=== PATIENT | male | born 1945 | race Caucasian/White ===

== ENCOUNTER → 2017-12-28 08:44 | Outpatient (CLI) | payer MEDICARE, OTHER, SELFPAY ==
--- NOTE | 2017-12-31 09:22 | P.PCN_ITS ---
Cardiac Stress Test Report Referral & Results Date Patient Seen: 12/31/17 Requesting provider: Naye Aguilera Indication: Dyspnea Rest ECG: Unremarkable Procedure Note: Today following both written and verbal informed consent the patient was exercised according to a standard Porfirio protocol patient went for a total of 6 min 1 sec achieving a maximum heart rate of 138 maximum systolic blood pressure of 200. This is approximately 7.0 METS. Exercise was terminated at this point because of targets were met and patient unable to continue at faster speed. Patient was also given Cardiolite through a previously started Hep-Lock IV by the nuclear physics teacher approximately 1 minute prior to the cessation of exercise. No ST segment changes Occasional to frequent PVCs and rare PACs Impression: No ECG evidence of ischemia Perfusion imaging will be reported separately based on Cardiolite administration Dysrhythmia as above Please note: Actual ECG tracings can be found in the PACS system.
--- NOTE | 2017-12-31 12:42 | DI.NM.S_ITS ---
PATIENT NAME: MARCOS TIM : 1945 EXAM DATE: 12/31/2017 8:52 ORD. : DAVID LAMAR M.D. CC: MODALITY: NM PATIENT TYPE: Out CONTRAST MEDIA: STATION ID: [id number] FLUORO TIME: PROCEDURE: NM MONICA PERF SPECT REST & STR Rest and exercise myocardial perfusion SPECT with gated imaging and ejection fraction RADIOPHARMACEUTICAL: 22.8 mCi Tc-99m sestamibi IV at rest and 14.8 mCi Tc- 99m sestamibi IV at peak exercise. A [id number]-[id number] was performed. INDICATIONS: SHORTNESS OF BREATH TECHNIQUE: Radiopharmaceutical was injected at peak stress test, and also at rest. SPECT images were obtained. SPECT myocardial perfusion images were displayed in short axis, horizontal long axis, and vertical long axis views. Gated images were reviewed using Mentegram software. COMPARISON: None. CARDIAC STRESS: A standard Porfirio treadmill exercise tolerance test was performed by the patient under the supervision of an attending staff. The patient exercised for 6 minutes; functional aerobic impairment (MJ) is 0%. Hemodynamic data: There is normal blood pressure and heart rate response to exercise stress. Patient achieved 93% of maximum predicted heart rate at peak exercise. Symptoms: Patient denied chest pain during exercise. EKG: No diagnostic EKG changes of ischemia; There were frequent PVCs during exercise. FINDINGS: Raw data: There is good myocardial labeling by radiotracer. No significant motion artifacts. Sxga-fd-lqktd ratio is 0.3 (normal is less than 0.38 for sestamibi tracer, and less than 0.50 for thallium tracer). Left ventricle function: Gated images demonstrate normal left ventricle wall thickening. No segmental wall motion abnormality. No transient visual ischemic Continued Report - Page 2 of 2 PATIENT NAME: MARCOS TIM : 1945 EXAM DATE: 12/31/2017 8:52 ORD. : DVAID LAMAR M.D. CC: MODALITY: NM PATIENT TYPE: Out CONTRAST MEDIA: STATION ID: [id number] FLUORO TIME: dilation; The left ventricle resting end-diastolic volume is 92 mL. Left ventricle stress ejection fraction is 74%; normal values are above 45%. Myocardial perfusion: There is a small inferoapical defect which is similar during stress and rest and indicates either prior small infarct or apical thinning. Otherwise there is great uptake of radiotracer without any reversible or fixed defects. IMPRESSION: No evidence of ischemia. Very small, fixed inferoapical defect. Average exercise capacity. Dictated by: Zach Moss on 12/31/2017 at 12:31 Approved by: Zach Moss on 12/31/2017 at 12:42
== END ==
PROVIDERS: PCP Family Medicine; Visit Provider Internal Medicine Cardiovascular Disease
DX: I49.3 Ventricular premature depolarization (principal); I49.1 Atrial premature depolarization; R06.02 Shortness of breath; R06.00 Dyspnea, unspecified
CPT/HCPCS: 78452; 93016; 93017; 93018; A9502

== ENCOUNTER → 2025-01-26 12:31 | Outpatient (CLI) | payer MEDICARE, OTHER, SELFPAY ==
--- NOTE | 2025-01-26 12:36 | DI.ECHO.S_ITS ---
[facility] : : [id number] : [place] : : [id number] : : Phone: [phone] Echocardiogram Report + + :Name: MARCOS TIM Study Date: 01/26/2025 Height: 68 in : :[facility] ReadingLocation: Weight: 193 lb : : Gender: Male BSA: 2.0 m2 : :: 1945 Age: 80 yrs BP: 181/76 mmHg: :Reason For Study: S/P TAVR : :Ordering Physician: WILLARD, : :DAVID Performed By: Nick Gorman : :Referring: DAVID LAMAR : + + Interpretation Summary The left ventricle is normal in size. The left ventricular ejection fraction is normal. The ejection fraction is estimated to be 60-65%. The right ventricle is grossly normal size. The right ventricular systolic function is normal. 26mm Medtronic Evolut FX valve visualized There is a bioprosthetic aortic valve. The prosthetic aortic valve is well-seated. The peak aortic velocity is 2.22 m/sec. The aortic valve mean gradient is 11.5 mmHg. The peak aortic velocity on the previous exam was 2.4 m/sec. There is mild perivalvular regurgitation around the prosthetic aortic valve. New AI. Fatty tricuspid annulus and very prominent eustachian valve in the right atrium which is visualized in apical views. Seen on previous echocardiogram in December 2023 as well. There is mild tricuspid regurgitation. Right ventricular systolic pressure is estimated to be 29.3 mmHg plus the clinically estimated CVP which cannot be estimated on this exam. Procedure: A two-dimensional transthoracic echocardiogram with color flow and Doppler was performed. The study quality was technically good. Comparison is made with the echocardiogram of 01/12/2024. The patient was in normal sinus rhythm during the exam. Left Ventricle: The left ventricle is normal in size. Left ventricular wall thickness is mild-moderately increased. There is no ventricular septal defect visualized. The ejection fraction is estimated to be 60-65%. The left ventricular ejection fraction is normal. There are no focal wall motion abnormalities. MV E/A: 1.1 Med Peak E' Alverto: 5.2 cm/sec E/E' med: 18.3. Right Ventricle: The right ventricle is grossly normal size. The right ventricular systolic function is normal. Atria: The left atrium is moderately dilated. The left atrium has mildly increased in size since the prior echo exam. The right atrium grossly appears normal in size. The interatrial septum is not well visualized. Mitral Valve: There is mild mitral annular calcification. The mitral valve leaflets are mildly calcified. The mitral valve leaflets appear mildly thickened. There is trace mitral regurgitation. Compared to the prior echo study, there has been a decrease in the severity of mitral regurgitation. Aortic Valve: 26mm Medtronic Evolut FX valve visualized. There is a bioprosthetic aortic valve. The prosthetic aortic valve is well-seated. There is mild perivalvular regurgitation around the prosthetic aortic valve. The peak aortic velocity is 2.22 m/sec. The aortic valve mean gradient is 11.5 mmHg. The peak aortic velocity on the previous exam was 2.4 m/sec. Tricuspid Valve: The tricuspid valve is not well visualized, but is grossly normal. Fatty tricuspid annulus and very prominent eustachian valve in the right atrium which is visualized in apical views. Seen on previous echocardiogram in December 2023 as well. There is mild tricuspid regurgitation. Right ventricular systolic pressure is estimated to be 29.3 mmHg plus the clinically estimated CVP which cannot be estimated on this exam. Pulmonic Valve: The pulmonic valve is not well seen, but is grossly normal. There is trace pulmonic regurgitation. Great Vessels: The aortic root is normal size. The dimensions of the ascending aorta are normal. The pulmonary artery is normal size. The inferior vena cava was not visualized. Pericardium/ Pleura There is no pericardial effusion. MMode/2D Measurements & Calculations LVIDd: 4.7 cm LVOT diam: 1.7 cm LVIDs: 2.9 cm Ao root diam: 3.5 cm FS: 37.8 % asc Aorta Diam: 3.4 cm EPSS: 0.37 cm IVSd: 1.4 cm LVPWd: 1.1 cm LV beverly. diameter/BSA (cm/m^2): 2.4 LV sys. diameter/BSA (cm/m^2): 1.5 LA A2 area: 27.5 cm2 TAPSE: 2.0 cm LA A4 area: 24.3 cm2 LA length (vol): 6.9 cm LA vol: 83.0 ml LA vol index: 41.2 ml/m2 Doppler Measurements & Calculations Ao V2 max: 221.7 cm/sec LVOT Max Alverto: 125.9 cm/sec Ao V2 mean: 162.4 cm/sec LV V1 max P.3 mmHg Ao max P.7 mmHg LV V1 VTI: 28.4 cm Ao mean P.5 mmHg BIANCA(I,D): 1.3 cm2 Ao V2 VTI: 51.9 cm BIANCA(V,D): 1.3 cm2 sev ratio: 0.55 BIANCA indexed to BSA (cm^2/m^2): 0.63 MV E max alverto: 95.2 cm/sec TR max alverto: 270.6 cm/sec MV A max alverto: 87.1 cm/sec TR max P.3 mmHg MV E/A: 1.1 PA V2 max: 135.8 cm/sec Med Peak E' Alverto: 5.2 cm/sec PA V2 mean: 96.1 cm/sec E/E' med: 18.3 PA mean P.0 mmHg Lat Peak E' Alverto: 7.1 cm/sec PA pr(Accel): 60.2 mmHg E/E' lat: 13.4 E/e' average: 15.9 MV dec time: 0.30 sec SV(LVOT): 66.0 ml Reading Physician:12:41 PM
== END ==
LOC: ECHO 12:34
PROVIDERS: PCP Physician Assistant Medical; Referring Provider Internal Medicine Cardiovascular Disease; Visit Provider Internal Medicine Cardiovascular Disease
DX: I08.2 Rheumatic disorders of both aortic and tricuspid valves (principal); Z95.2 Presence of prosthetic heart valve
CPT/HCPCS: 93306